=== PATIENT | female | born 1945 | race Caucasian/White ===

== ENCOUNTER 2018-03-13 17:45 | Inpatient (IN) | payer OTHER ==
[~2018-03-13] VITALS: Ht 157.5 cm; Wt 71.7 kg
[2018-03-13 19:01] LABS: ABSOLUTE BASOPHIL COUNT 0.1 /CUMM (0.0-0.2); ABSOLUTE EOSINOPHIL COUNT 0.1 /CUMM (0.0-0.7); ABSOLUTE GRANULOCYTE CT 8.2 /CUMM (1.4-6.5); ABSOLUTE LYMPH COUNT 2.1 /CUMM (1.2-3.4); ABSOLUTE MONOCYTE COUNT 0.7 /CUMM (0.10-0.60); BASOPHIL % 0.5 % (0.0-2.0); EOSINOPHIL % 1.2 % (0-5); GRANULOCYTE % 72.9 % (42.2-75.2); HEMATOCRIT 39.5 % (37-47); MEAN CORPUSCULAR HGB 28.5 PG (27.0-31.0); MEAN CORPUSCULAR HGB CONC 33.3 G/DL (33.0-37.0); MEAN CORPUSCULAR VOLUME 85.7 FL (81.0-99.0); MEAN PLATELET VOLUME 8.1 FL (7.4-10.4); PLATELET COUNT 307 /CUMM (130-400); RBC DISTRIBUTION WIDTH 13.6 % (11.5-14.5); RED BLOOD CELL CT 4.61 /CUMM (4.20-5.40); WHITE BLOOD CELL COUNT 11.2 /CUMM (4.8-10.8)
--- NOTE | 2018-03-13 19:36 | ED CARDIAC/CP/PALPITATIONS ---
History of Present Illness General Chief Complaint: Dyspnea (COPD, CHF, Other) Stated Complaint: SOB Source: patient Exam Limitations: no limitations Vital Signs & Intake/Output Vital Signs & Intake/Output Vital Signs Date Time Temp Pulse Resp B/P B/P Pulse O2 O2 Flow FiO2 Mean Ox Delivery Rate 03/132 97.9 88 18 122/85 96 Room Air 03/13 2019 96 03/13 2006 97.9 108 18 101/73 97 Room Air 03/13 1825 98.0 116 18 121/75 95 Room Air Allergies Coded Allergies: Penicillins (RASH AND HAND PEELING 03/13/18) Triage Note: PT STATSE ABOUT 1 WEEK AGO SHE WAS GETTING SOB AND FELT LIKE SHE HAD TO COUGH. PT STATES THE PAIN FELT LIKE PLURASY. PT STATES HER PCP SENT HER TO CARDIOLOGY AND WAS FOUND TO BE IN RAPID A-FIB. PT WAS THEN PLACED ON ELIQUIS AND METOPROLOL 50 MG. PT STATES SHE WAS TOLD TO COME BACK FOR ECHOCARDIAGRAM. PT STATES TODAY SHE HAS INCREASED SOB AND WHEN SHE COUGHS IT HURTS SO THE ISSUE IS GETTING WORSE. PT WAS TOLD TO COME TO ED FOR CHEST X-RAY Triage Nurses Notes Reviewed? 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 see below for history Cardiovascular: AFIB Surgical History Surgical History: non-contributory Psychosocial History What is your primary language Korean Tobacco Use: Quit >30 days ago ETOH Use: occasional use Illicit Drug Use: denies illicit drug use Family History Hx Contributory? No (Mumtaz Lindsay) Review of Systems Review of Systems Constitutional: Reports: no symptoms. EENTM: Reports: no symptoms. Respiratory: Reports: see HPI. Cardiovascular: Reports: see HPI. GI: Reports: no symptoms. Genitourinary: Reports: no symptoms. Musculoskeletal: Reports: no symptoms. Skin: Reports: no symptoms. Neurological/Psychological: Reports: no symptoms. Hematologic/Endocrine: Reports: no symptoms. Immunologic/Allergic: Reports: no symptoms. All Other Systems: Reviewed and Negative (Mumtaz Lindsay) Physical Exam Physical Exam General Appearance: no apparent distress, alert, comfortable Head: atraumatic Eyes: Bilateral: normal appearance. Ears, Nose, Throat: hearing grossly normal Respiratory: no respiratory distress, decreased breath sounds Cardiovascular: tachycardia, irregularly irregular Gastrointestinal: normal bowel sounds, soft, non-tender Extremities: normal inspection, no edema Neurologic/Psych: no motor/sensory deficits, awake, alert Skin: intact, normal color Lymphatic: no anterior cervical lynsey Core Measures ACS in differential dx? Yes CVA/TIA Diagnosis No Sepsis Present: No Sepsis Focused Exam Completed? No (Mumtaz Lindsay) Progress Differential Diagnosis: AMI, aortic dissection, atrial fibrillation, cholecystitis, CHF/pulm edema, costochondritis, hyperkalemia, hypovolemia, hyperthyroid, hyperventilation, intracranial hemorrhage, musculoskeletal pain, myocarditis, pancreatitis, pericarditis, pneumonia, pneumothorax, PSVT, pulmonary embolism, PUD/GERD, PVCs/PACs, respiratory failure, sepsis, unstable angina, V-fib/V-Tach, WPW syndrome Plan of Care: Orders Procedure Date/time Status Heart Healthy Diet 03/14 B Active Patient Data 03/13 2144 Active BLOOD CULTURE 03/13 2138 Active ED Holding Orders 03/13 2137 Active Admit to inpatient 03/13 2137 Active Vital Signs 03/13 2137 Active Code Status 03/13 2137 Active Intake & Output 03/13 194 Active TROPONIN LEVEL 03/13 1807 Complete COMPREHENSIVE METABOLIC PANEL 03/13 1807 Complete CBC WITHOUT DIFFERENTIAL 03/13 1807 Complete B-TYPE NATRIURETIC PEP (BNP) 03/13 1807 Complete EKG 03/13 174 Active Laboratory Tests 03/13/18 1835: Anion Gap 11, Estimated GFR > 60, BUN/Creatinine Ratio 16.7, Glucose 115 H, Calcium 9.5, Total Bilirubin 0.4, AST 39 H, ALT 51, Alkaline Phosphatase 106, Troponin I < 0.01, Adq-S-Pdg[place]qlkyuh Pept 1670 H, Total Protein 7.2, Albumin 3.8, Globulin 3.4, Albumin/Globulin Ratio 1.1, CBC w Diff NO MAN DIFF REQ, RBC 4.61, MCV 85.7, MCH 28.5, MCHC 33.3, RDW 13.6, MPV 8.1, Gran % 72.9, Lymphocytes % 19.0 L, Monocytes % 6.4, Eosinophils % 1.2, Basophils % 0.5, Absolute Granulocytes 8.2 H, Absolute Lymphocytes 2.1, Absolute Monocytes 0.7 H, Absolute Eosinophils 0.1, Absolute Basophils 0.1 Microbiology 03/13 2239 BLOOD: Blood Culture - RECD 03/13 2138 BLOOD: Blood Culture - CAN Cancelled: Quantity not sufficient for Aerobic blood culture bottle. Upon initial presentation patient is resting comfortably bedside due to recent history of new onset atrial fibrillation CT angiogram was performed. CT scan shows results of concerns of lung cancer with metastasis of the mediastinum and the liver. Patient was given copies of the image results and was informed of this concern Patient also was informed of concerns of CT scan images of infiltrate. IV antibiotics were administered Diagnostic Imaging: Viewed by Me: CT Scan. Radiology Impression: acute abnormality Initial ED EKG: ATRIAL FIBRILLATION 116 Comments: PATIENT: JOSELIN BROWN PRESENT AGE: 73 PATIENT ACCOUNT NO: [id number] : 47 LOCATION: [facility] ORDERING PHYSICIAN: Mumtaz HORVATH SERVICE DATE: 03/13/18 EXAM TYPE: CAT - CTA CHEST-PULMONARY EMBOLISM EXAMINATION: CTA CHEST PE STUDY CLINICAL INFORMATION: SOB, NEW ONSET AFIB COMPARISON: No pertinent prior studies are available for comparison. TECHNIQUE: Prior to contrast administration, noncontrast localization images were obtained. After the administration of 95 ml of Optiray 320 IV contrast, contiguous thin slice helical images were obtained through the thorax. Reformatted MIP images in the coronal and sagittal planes were obtained at the acquisition workstation. DLP: 372 mGy-cm. FINDINGS: The bolus timing on this study was acceptable for visualization of the pulmonary arterial tree. There are no intraluminal pulmonary arterial filling defects present to suggest pulmonary embolism. There is a large mass lesion involving the right superhilar region and mediastinum. This doesn't case the right upper lobe bronchi and upper lobe artery which is severely truncated by this very large mass lesion. The mass extends into the mediastinum and is contiguous with likely right paratracheal, precarinal, and right hilar adenopathy overall the confluent lesion measures 7.3 x 4.1 cm in size in the axial images. Extends for a superior to inferior length of approximately 9.3 cm in size. Unfortunately, there is also additional subcarinal adenopathy measuring up to 1.6 cm in short axis diameter, prominent contralateral AP window lymph nodes measuring up to 0.7 cm in short axis diameter and additional right upper mediastinal/supraclavicular lymph nodes measuring up to 2.7 cm and maximal short axis diameter. There are additional patchy regions of airspace disease in the right upper lobe possibly reflecting a component of postobstructive change. There is mild emphysematous changes bilaterally. There is no evidence of pleural effusion or pneumothorax. The heart is normal in size. No evidence of ventricular septal bowing or right heart strain. The mediastinum and great vessels are normal. There is no pericardial effusion or pericardial thickening. Limited evaluation of the upper abdominal viscera demonstrates innumerable subtle low-attenuation lesions throughout the liver concerning for diffuse hepatic metastases as well. These are not well delineated but the largest lesion in the lateral right lobe the liver measures up to 2.5 cm in short axis diameter. I do not appreciate any acute bony lesion IMPRESSION: Large right suprahilar mass lesion extending into the adjacent mediastinum with likely confluent adenopathy in the right hilar, precarinal, and paratracheal regions. There is additional adenopathy elsewhere in the mediastinum and right supraclavicular region concerning for metastatic disease. Additionally in the visualized upper abdomen there are innumerable low-attenuation lesions seen throughout the liver concerning for diffuse hepatic metastases. More patchy airspace disease is seen in the lateral aspect of the right upper lobe possibly due to infectious or inflammatory postobstructive changes. Primary small peripheral lung lesion in this location would be possible but less likely based on the size and distribution of the adenopathy/metastases VTE: Negative DICTATED BY: Andrew Ibarra MD DATE/TIME DICTATED:03/13/182050 CONSTRUCTION QUALITY CONTROL MANAGER:NAHUM DATE/TIME TRANSCRIBED:03/13/182050 CONFIDENTIAL, DO NOT COPY WITHOUT APPROPRIATE AUTHORIZATION. <Electronically signed in Other Vendor System> SIGNED BY: Andrew Ibarra MD 05/23 (Mumtaz Lindsay) Departure Departure Disposition: STILL A PATIENT Condition: Stable Clinical Impression Primary Impression: Pneumonia Secondary Impressions: Lung cancer, Metastasis Referrals: Neo RAMIRES,Nicki Garcia (PCP/Family) Departure Forms: Customer Survey General Discharge Information Admission Note Spoke With: Bolivar Cook MD Documentation of Exam: Documentation of any treatments & extenuating circumstances including Concerns Regarding Discharge (functional status, medication knowledge or non-compliance, living conditions, etc.) that warrant an admission rather than observation: [ Patient requires pulmonary consultation IV antibiotics nebulizer treatments oncology consultation and repeat labs blood cultures pending] (Mumtaz Lindsay) PA/SAP PPM CONSULTANT Co-Sign Statement Statement: ED Attending supervision documentation- [X] I saw and evaluated the patient. I have also reviewed all the pertinent lab results and diagnostic results. I agree with the findings and the plan of care as documented in the PA's/SAP PPM CONSULTANT's documentation. [X] I have reviewed the ED Record and agree with the PA's/SAP PPM CONSULTANT's documentation. [] Additions or exceptions (if any) to the PAs/SAP PPM CONSULTANT's note and plan are summarized below: [Patient has new-onset A. fib and worsening shortness of breath. She was diagnosed with metastatic disease here in the emergency department. Patient will be admitted for pulmonary oncology consultation. Patient will need cardiology consultation, telemetry monitoring, she is being admitted for her dyspnea.] (Harshil Pascual MD) Critical Care Note Critical Care Note Critical Care Time: 30-74 min (Mumtaz Lindsay) [] Additions or exceptions (if any) to the PAs/SAP PPM CONSULTANT's note and plan are summarized below: [Patient has new-onset A. fib and worsening shortness of breath. She was diagnosed with metastatic disease here in the emergency department. Patient will be admitted for pulmonary oncology consultation. Patient will need cardiology consultation, telemetry monitoring, she is being admitted for her dyspnea.] (Harshil Pascual MD) Critical Care Note Critical Care Note Critical Care Time: 30-74 min (Mumtaz Lindsay)
--- NOTE | 2018-03-13 21:02 | CT SCAN REPORT ---
EXAMINATION: CTA CHEST PE STUDY CLINICAL INFORMATION: SOB, NEW ONSET AFIB COMPARISON: No pertinent prior studies are available for comparison. TECHNIQUE: Prior to contrast administration, noncontrast localization images were obtained. After the administration of 95 ml of Optiray 320 IV contrast, contiguous thin slice helical images were obtained through the thorax. Reformatted MIP images in the coronal and sagittal planes were obtained at the acquisition workstation. DLP: 372 mGy-cm. FINDINGS: The bolus timing on this study was acceptable for visualization of the pulmonary arterial tree. There are no intraluminal pulmonary arterial filling defects present to suggest pulmonary embolism. There is a large mass lesion involving the right superhilar region and mediastinum. This doesn't case the right upper lobe bronchi and upper lobe artery which is severely truncated by this very large mass lesion. The mass extends into the mediastinum and is contiguous with likely right paratracheal, precarinal, and right hilar adenopathy overall the confluent lesion measures 7.3 x 4.1 cm in size in the axial images. Extends for a superior to inferior length of approximately 9.3 cm in size. Unfortunately, there is also additional subcarinal adenopathy measuring up to 1.6 cm in short axis diameter, prominent contralateral AP window lymph nodes measuring up to 0.7 cm in short axis diameter and additional right upper mediastinal/supraclavicular lymph nodes measuring up to 2.7 cm and maximal short axis diameter. There are additional patchy regions of airspace disease in the right upper lobe possibly reflecting a component of postobstructive change. There is mild emphysematous changes bilaterally. There is no evidence of pleural effusion or pneumothorax. The heart is normal in size. No evidence of ventricular septal bowing or right heart strain. The mediastinum and great vessels are normal. There is no pericardial effusion or pericardial thickening. Limited evaluation of the upper abdominal viscera demonstrates innumerable subtle low-attenuation lesions throughout the liver concerning for diffuse hepatic metastases as well. These are not well delineated but the largest lesion in the lateral right lobe the liver measures up to 2.5 cm in short axis diameter. I do not appreciate any acute bony lesion IMPRESSION: Large right suprahilar mass lesion extending into the adjacent mediastinum with likely confluent adenopathy in the right hilar, precarinal, and paratracheal regions. There is additional adenopathy elsewhere in the mediastinum and right supraclavicular region concerning for metastatic disease. Additionally in the visualized upper abdomen there are innumerable low-attenuation lesions seen throughout the liver concerning for diffuse hepatic metastases. More patchy airspace disease is seen in the lateral aspect of the right upper lobe possibly due to infectious or inflammatory postobstructive changes. Primary small peripheral lung lesion in this location would be possible but less likely based on the size and distribution of the adenopathy/metastases VTE: Negative
--- NOTE | 2018-03-13 22:54 | History & Physical ---
ChanelJonathanli 03/13/18 2253: General Information and HPI MD Statement: I have seen and personally examined JOSELIN BROWN and documented this H&P. The patient is a 73 year old F who presented with a patient stated chief complaint of []. Source of Information: patient, family Exam Limitations: no limitations History of Present Illness: Ms Brown is a 73 year old woman w/ a PMHx of paroxysmal atrial fibrillation came to the hospital with a chief concern of exertional dyspnea 1 week. She was known to be in her usual state of health until a few weeks ago, when she noticed that she had pain in her right side of the chest. Approximately one week ago, she had exertional shortness of breath, and nasal congestion and was evaluated by her primary care physician and subsequently by her siebel administrator. She was diagnosed with atrial fibrillation and was started on apixaban and metoprolol. She did not have any chest pain, palpitations, lightheadedness, loss of consciousness, pedal edema. Approximately 24 hours ago, she noticed that she had worsening dyspnea upon ambulation, associated with nonproductive cough and right-sided chest pain at the time of paroxysms of cough. She was seen at walk-in clinic and was recommended to be evaluated in the ER. No fever, but had occasional chills. No weight loss or weight gain, no changes in appetite. No melena, bleeding per rectum. No jaundice, nausea or vomiting. No pedal edema, dysuria. No abdominal distention. No previous hospital admissions, but reported having increased vaginal discharge in the last few months which was evaluated by her primary care physician and thought to be benign. Past smoker, [id number] smoking history, quit 20 years ago. Family history of lung cancer in mother. 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 Allergies/Medications Allergies: Coded Allergies: Penicillins (RASH AND HAND PEELING 03/13/18) Home Med list Apixaban (Eliquis) 5 MG TABLET 1 TAB PO BID atrial fibrillaton (Reported) Metoprolol Succinate 100 MG TAB.ER.24H 1 TAB PO DAILY heart health (Reported) Past History Travel History Traveled to [place] past 21 day No Medical History Cardiovascular: AFIB Surgical History Surgical History: non-contributory Past Family/Social History Family History Relations & Conditions if any MOTHER (LUNG CA). Psychosocial History Where do you live? Home Services at Home: None Primary Language: Maldivian Smoking Status: Former Smoker ETOH Use: occasional use Illicit Drug Use: denies illicit drug use Living Will? no Functional Ability ADLs Independent: dressing, eating, toileting, bathing. Ambulation: independent IADLs Independent: shopping, housework, finances, food prep, telephone, medication admin. Unknown: transportation. Employment History Employment Retired Profession/Employer OFFICE WORK Review of Systems Review of Systems Constitutional: Reports: see HPI, chills. Denies: fever, weakness, unexplained weight loss. EENTM: Denies: double vision, icterus. Cardiovascular: Reports: chest pain. Denies: palpitations. Respiratory: Denies: hemoptysis, orthopnea. GI: Denies: abdominal pain, diarrhea, melena, nausea, bloody stool, changes in stool , vomiting. Genitourinary: Denies: dysuria. Musculoskeletal: Denies: back pain. Skin: Denies: change in skin color. Neurological/Psychological: Denies: pre-existing deficit. Hematologic/Endocrine: Denies: bruising, bleeding. Exam & Diagnostic Data Last 24 Hrs of Vital Signs/I&O Vital Signs Date Time Temp Pulse Resp B/P B/P Pulse O2 O2 Flow FiO2 Mean Ox Delivery Rate 03/13 2212 97.9 88 18 122/85 96 Room Air 03/13 2019 96 03/13 2006 97.9 108 18 101/73 97 Room Air 03/13 1825 98.0 116 18 121/75 95 Room Air Physical Exam General Appearance Alert, Oriented X3, Cooperative, No Acute Distress Skin No Rashes, No Breakdown, No Significant Lesion Skin Temp/Moisture Exam: Warm/Dry Sepsis Skin Exam (color): Normal for Ethnicity HEENT Atraumatic, PERRLA, EOMI, Mucous Membr. moist/pink Neck Supple, No JVD, No thryomegaly, +2 Carotid Pulse wo Bruit, No LAD Lymphatic Axillary nl, Cervical nl, INGUINAL Nl Cardiovascular Normal S1, Normal S2, No Murmurs, IRREGULAR Lungs DECREASED AIR ENTRY B/L WHEEZES R > L Abdomen Normal Bowel Sounds, Soft, No Tenderness, No Hepatospenomegaly Neurological Normal Speech, Strength at 5/5 X4 Ext, Normal Tone, Sensation Intact, Cranial Nerves 3-12 NL, Reflexes 2+ Extremities No Clubbing, No Cyanosis, No Edema, Normal Pulses, No Tenderness/ Swelling Vascular Normal Pulses, Pulses Symmetrical Sepsis Peripheral Pulse Location: Dorsalis Pedis Sepsis Peripheral Pulse Exam: Normal Sepsis Cap Refill Exam: <2 Sec Last 24 Hrs of Labs/Dano: Laboratory Tests 03/13/18 1835: Anion Gap 11, Estimated GFR > 60, BUN/Creatinine Ratio 16.7, Glucose 115 H, Calcium 9.5, Total Bilirubin 0.4, AST 39 H, ALT 51, Alkaline Phosphatase 106, Troponin I < 0.01, Xkh-Z-Csrurjxpony Pept 1670 H, Total Protein 7.2, Albumin 3.8, Globulin 3.4, Albumin/Globulin Ratio 1.1, CBC w Diff NO MAN DIFF REQ, RBC 4.61, MCV 85.7, MCH 28.5, MCHC 33.3, RDW 13.6, MPV 8.1, Gran % 72.9, Lymphocytes % 19.0 L, Monocytes % 6.4, Eosinophils % 1.2, Basophils % 0.5, Absolute Granulocytes 8.2 H, Absolute Lymphocytes 2.1, Absolute Monocytes 0.7 H, Absolute Eosinophils 0.1, Absolute Basophils 0.1 Microbiology 03/13 2349 URINE ROUT: Legionella Antigen - ORD 03/13 2349 URINE ROUT: Streptococcus pneumoniae Antigen (M - ORD 03/13 2348 LOWER RESP: Respiratory Culture - ORD 03/13 2348 LOWER RESP: Gram Stain - ORD 03/13 2239 BLOOD: Blood Culture - RECD 03/13 2138 BLOOD: Blood Culture - CAN Cancelled: Quantity not sufficient for Aerobic blood culture bottle. Diagnostic Data EKG Results NOT DONE Assessment/Plan Assessment: Ms Brown is a 73 year old woman w/ a PMHx of paroxysmal atrial fibrillation came to the hospital with a chief concern of exertional dyspnea 1 week, likely secondary to worsening malignancy and post obstructive pneumonia. At the time of admission-vitals temperature 98.0, pulse rate 116, respiration 18 , blood pressure 121/75, 95% on room air. Pertinent lab findings: WBC 11.2, hemoglobin 13.1, MCV 85.7, platelet count 307. Sodium 141, potassium 4.2. Bicarbonate 28, anion gap 11, BUN 15, creatinine 0.9. ProBNP 1670. AST 39, ALT 51, alkaline phosphatase 106. Albumin 3.8. Chest CTA revealed: Large right suprahilar mass lesion extending into the adjacent mediastinum with likely confluent adenopathy in the right hilar, precarinal, andparatracheal regions. There is additional adenopathy elsewhere in the mediastinum and right supraclavicular region concerning for metastatic disease. Additionally in the visualized upper abdomen there are innumerable low-attenuation lesions seen throughout the liver concerning for diffusehepatic metastases. More patchy airspace disease is seen in the lateralaspect of the right upper lobe possibly due to infectious or inflammatorypostobstructive changes. Primary small peripheral lung lesion in this location would be possible but less likely based on the size and distributionof the adenopathy/metastases Problem list: #1 Lung mass w/ extrathoracic dissimination #2 pneumonia #3 paroxysmal atrial fibrillation Etiology in her case is likely maligancy, likely adenocarcinoma which is increasing in prevalence and the treatment can be targeted. That said, given her rapidity of symptoms that got worsened in the last few weeks, and history of smoking+Fam Hx makes me think, that small cell cancer should be kept in mind and diagnosis expediated by biopsy and PET. She presented w/ dissimination of mets to extrathoracic organs at the time of diagnosis, and small cell should be kept in differentials. In regards to her bronchospasm, and possible pneumonia, further management should be subjected to clinical course in the next 12-24 hrs, and abx could be dc'ed after reviewing cultures. Plan: # Obtain venous access, and fluid resuscitation as needed. #Supplemental oxygen, prn #Inhaled bronchodilators as needed #Follow CBCs with differential, serum chemistry #Blood cultures drawn in ther ER. Check LRC. #Check urine antigen test for strep pneumo and legionella #Trend lactate, if she is febrile or has any s/s sepsis #Start IV antibiotics-preferably beta lactam+ macrolide for now. If she is asymptomatic in the next 24 hrs, and culutes are negative dc abx. #Hold eliquis, and restart if no biopsy is planned in the next 12 hrs.continue toprol xl #For the Mgt of lung ca- she should follow up with Oncologist winter, and get a PET scan to make sure that this is not small cell lung ca given the rapid onset of symptoms. Checklist: 1. DVT Ppx- Eliquis 2. GI ppx-Protonix 3. Full code 4. Pain pathway ordered. 5. Med rec completed. As Ranked By This Provider Problem List: 1. Metastasis 2. Lung cancer Core Measures/Misc (05/22) Acute Coronary Syndrome ACS Diagnosis: No Congestive Heart Failure Congestive Heart Failure Diagnosis No Cerebrovascular Accident CVA/TIA Diagnosis: No VTE (View Protocol) VTE Risk Factors Acute Medical Illness No Mechanical VTE Prophylaxis d/t N/A MechProphylax Ordered No VTE Pharm Prophylaxis d/t NA PharmProphylax ordered Sepsis (View protocol) Sepsis Present: No If YES complete Sepsis Event Note If YES complete Sepsis Event Note Bolivar Cook MD 03/14/18 0143: Core Measures/Misc (05/22) Sepsis (View protocol) If YES complete Sepsis Event Note If YES complete Sepsis Event Note Attending MD Review Statement Attending Statement Attending MD Statement: examined this patient, discuss w/resident/PA/[employer] HAT LINUX ENGINEER, agreed w/resident/PA/[employer] ENGINEER, reviewed EMR data (avail) Attending Assessment/Plan: 73F no PMH prior to last week when she was diagnosed with new onset atrial fibrillation and placed on Metoprolol and Eliquis, presenting with progressive shortness of breath and dyspnea on exertion for the past week, symptoms did not improve following a-fib treatment, also with fatigue. CTA was done, negative for PE, but showed new large right suprahilar mass with extension into mediastinum and liver metastases. Also shows patchy infiltrates in RUL, WBC 11, afebrile. 1. RUL pneumonia 2. Right lung mass 3. Liver metastases 4. Paroxsymal atrial fibrillation Plan - Admit to general medicine - Ceftriaxone and Azithromycin - Sputum culture - Pulmonary and oncology consults - Continue Metoprolol, hold Eliquis as biopsy may be required - DVT PPx
[2018-03-13] MEDS ORDERED: ELIQUIS5 M1 PO (23:43)
[2018-03-13] MEDS ORDERED: METOPROLOL SUC100 M2 PO (23:43)
--- NOTE | 2018-03-14 07:05 | Cons- Oncology ---
General Information and HPI Consulting Request Date of Consult: 03/14/18 Requested By: Bolivar Cook MD History of Present Illness: 73-year-old woman the recent diagnosis of atrial fibrillation placed on Eliquis now found to have a large lung mass. Patient is complaining of chest discomfort for quite some time. She denied hemoptysis productive sputumq or a pleuritic component to her pain. She recently has seen cardiology and was placed on anticoagulation and a beta marcus. Echocardiogram was scheduled as an outpatient. Allergies/Medications Allergies: Coded Allergies: Penicillins (RASH AND HAND PEELING 03/13/18) Home Med List: Apixaban (Eliquis) 5 MG TABLET 1 TAB PO BID atrial fibrillaton (Reported) Metoprolol Succinate 100 MG TAB.ER.24H 1 TAB PO DAILY heart health (Reported) Current Medications: Current Medications Sig/Cate Start time Last Medication Dose Route Stop Time Status Admin Acetaminophen 650 MG Q8P PRN 03/13 2345 AC PO Albuterol Sulfate 3 ML Q4P PRN 03/13 2345 AC INH Albuterol Sulfate 3 ML ONCE ONE 03/13 2000 DC 03/13 INH 03/13 Apixaban 5 MG BID 03/14 0035 CAN PO Apixaban 5 MG BID 03/13 2345 DC 03/14 PO 0103 Azithromycin 500 MG 2300 03/14 2300 AC Sodium Chloride 250 ML IV Azithromycin 500 MG ONCE ONE 03/13 2145 DC 03/13 Sodium Chloride 250 ML IV 03/13 2244 2300 Ceftriaxone Sodium 1,000 MG 2300 03/14 2300 AC IV Ceftriaxone Sodium 0 .STK-MED ONE 03/13 2249 DC .ROUTE Ceftriaxone Sodium 1,000 MG ONCE ONE 03/13 214 DC 03/13 IV 03/13 2146 2300 Ipratropium [place] 2.5 ML ONCE ONE 03/13 2000 DC 03/13 INH 03/13 Metoprolol Succinate 100 MG DAILY 03/14 0900 AC PO Oxycodone HCl 5 MG Q8P PRN 03/14 0015 AC PO Tramadol HCl 50 MG Q8P PRN 03/14 0015 AC PO Review of Systems Review of Systems: Patient complains of headaches on the right side which is attributed to sinus congestion. She denied dizziness or change in vision. Patient denied nausea vomiting diarrhea change in bowel habits. She denied dysuria hematuria. Patient denied bone aches or focal neurologic deficit Past History Travel History Traveled to [place] past 21 day No Medical History Cardiovascular: AFIB Surgical History Surgical History: non-contributory Family History Relations & Conditions If Any: MOTHER (LUNG CA). Psychosocial History Where Do You Live? Home Services at Home: None Primary Language: Lithuanian Smoking Status: Former Smoker ETOH Use: occasional use Illicit Drug Use: denies illicit drug use Living Will? no Functional Ability ADLs Independent: dressing, eating, toileting, bathing. Ambulation: independent IADLs Independent: shopping, housework, finances, food prep, telephone, medication admin. Unknown: transportation. Employment History Employment: Retired Profession/Employer: OFFICE WORK Exam & Diagnostic Data Vital Signs and I&O Vital Signs Date Time Temp Pulse Resp B/P B/P Pulse O2 O2 Flow FiO2 Mean Ox Delivery Rate 03/13 2212 97.9 88 18 122/85 96 Room Air 03/13 2019 96 03/13 2006 97.9 108 18 101/73 97 Room Air 03/13 1825 98.0 116 18 121/75 95 Room Air Intake & Output 03/14 0800 03/14 0000 03/13 1600 Intake Total Output Total Balance Patient 158 lb Weight Weight Reported by Patient Measurement Method Gen.: in NAD ENT: Sclera anicteric Chest: Normal respiratory effort, decreased breath sounds Cor: Irregular Abd: Bowel sounds present, no tenderness, no rebound, no definite masses Extremities: Without clubbing, cyanosis, or asymmetric edema Neurology: Alert and oriented 3, no gross deficit Skin: No rashes Breasts: No masses or nipple discharge Lymph nodes-nonpalpable Last 48 Hours of Lab Results: Laboratory Tests 03/13 1835 Chemistry Sodium (137 - 145 mmol/L) 141 Potassium (3.5 - 5.1 mmol/L) 4.2 Chloride (98 - 107 mmol/L) 102 Carbon Dioxide (22 - 30 mmol/L) 28 Anion Gap (5 - 16) 11 BUN (7 - 17 mg/dL) 15 Creatinine (0.5 - 1.0 mg/dL) 0.9 Estimated GFR (>60 ml/min) > 60 BUN/Creatinine Ratio (7 - 25 %) 16.7 Glucose (65 - 99 mg/dL) 115 H Calcium (8.4 - 10.2 mg/dL) 9.5 Total Bilirubin (0.2 - 1.3 mg/dL) 0.4 AST (14 - 36 U/L) 39 H ALT (9 - 52 U/L) 51 Alkaline Phosphatase (<127 U/L) 106 Troponin I (< 0.11 ng/ml) < 0.01 [id number] Pept (<125 pg/mL) 1670 H Total Protein (6.3 - 8.2 g/dL) 7.2 Albumin (3.5 - 5.0 g/dL) 3.8 Globulin (1.9 - 4.2 gm/dL) 3.4 Albumin/Globulin Ratio (1.1 - 2.2 %) 1.1 Hematology CBC w Diff NO MAN DIFF REQ WBC (4.8 - 10.8 /CUMM) 11.2 H RBC (4.20 - 5.40 /CUMM) 4.61 Hgb (12.0 - 16.0 G/DL) 13.1 Hct (37 - 47 %) 39.5 MCV (81.0 - 99.0 FL) 85.7 MCH (27.0 - 31.0 PG) 28.5 MCHC (33.0 - 37.0 G/DL) 33.3 RDW (11.5 - 14.5 %) 13.6 Plt Count (130 - 400 /CUMM) 307 MPV (7.4 - 10.4 FL) 8.1 Gran % (42.2 - 75.2 %) 72.9 Lymphocytes % (20.5 - 51.1 %) 19.0 L Monocytes % (1.7 - 9.3 %) 6.4 Eosinophils % (0 - 5 %) 1.2 Basophils % (0.0 - 2.0 %) 0.5 Absolute Granulocytes (1.4 - 6.5 /CUMM) 8.2 H Absolute Lymphocytes (1.2 - 3.4 /CUMM) 2.1 Absolute Monocytes (0.10 - 0.60 /CUMM) 0.7 H Absolute Eosinophils (0.0 - 0.7 /CUMM) 0.1 Absolute Basophils (0.0 - 0.2 /CUMM) 0.1 Imaging/Other Studies: [id number] hilar mass involvement in the mediastinum, abnormal lymphadenopathy, masses in the liver consistent with metastatic disease,? Question abnormal supraclavicular lymph node Assessment/Plan Assessment: 1. CAT scan findings are most suggestive of metastatic lung cancer- Issues- a. Need for tissue confirmation-pulmonary service to see patient, there is no palpable lymphadenopathy on physical exam, if accessible , a liver biopsy would not only confirm diagnosis but define stage of disease b. Extent of disease-CAT scan of the head with contrast, bone scan or PET scan; Given the recent diagnosis of atrial fibrillation, echocardiogram c. Treatment-await biopsy 2. New-onset atrial fibrillation-CAT scan report does not suggest pericardial involvement but echocardiogram is indicated; timing of biopsy needs to accommodate Eliquis use I have discussed the above with the patient Recommendations: .. Consult Acknowledgment - Thank you for your consult request.
--- NOTE | 2018-03-14 07:56 | PN- Housestaff ---
Laila RAMIRES,Sylvia 03/14/18 0756: Subjective Follow-up For: post obstructive pneumonia Subjective: Patient seen and examined. She continues to have right-sided chest pain when she coughs. She denies any shortness of breath but is lying comfortably in bed, not exerting herself. Her vitals are stable. She is very eager to go home and it was explained at length the plan and that it would be best if she stayed at least for 1 more day. Patient has no other complaints and says that she feels good. Review of Systems Constitutional: Reports: no symptoms. Cardiovascular: Reports: chest pain. Respiratory: Reports: cough. Gastrointestinal: Reports: no symptoms. Genitourinary: Reports: no symptoms. Musculoskeletal: Reports: no symptoms. Skin: Reports: no symptoms. Neurological/Psychological: Reports: no symptoms. Objective Last 24 Hrs of Vital Signs/I&O Vital Signs Date Time Temp Pulse Resp B/P B/P Pulse O2 O2 Flow FiO2 Mean Ox Delivery Rate 03/14 1442 97.9 103 18 100/60 94 Room Air 03/14 1339 98.2 91 17 120/70 95 Room Air 03/14 0942 90 122/70 03/14 0926 98.0 90 18 122/70 98 Room Air 03/14 0800 Room Air 03/14 0800 Room Air 03/13 2212 97.9 88 18 122/85 96 Room Air 03/13 2019 96 03/13 2006 97.9 108 18 101/73 97 Room Air 03/13 1825 98.0 116 18 121/75 95 Room Air Intake & Output 03/14 1600 03/14 0800 03/14 0000 Intake Total 120 Output Total Balance 120 Intake, Oral 120 Number 0 Bowel Movements Patient 158 lb 158 lb Weight Weight Reported by Patient Reported by Patient Measurement Method Physical Exam General Appearance: Alert, Oriented X3, Cooperative, No Acute Distress Skin Temp/Moisture Exam: Warm/Dry HEENT: Atraumatic, PERRLA, EOMI, Mucous Membr. moist/pink Neck: Supple, No JVD Cardiovascular: Regular Rate, Normal S1, Normal S2, No Murmurs Lungs: Clear to Auscultation, Normal Air Movement Neurological: Normal Gait, Normal Speech, Strength at 5/5 X4 Ext, Normal Tone, Sensation Intact, Cranial Nerves 3-12 NL Extremities: No Clubbing, No Cyanosis, No Edema, Normal Pulses, No Tenderness/ Swelling Current Medications: Current Medications Sig/Cate Start time Last Medication Dose Route Stop Time Status Admin Acetaminophen 650 MG Q8P PRN 03/13 234 AC PO Albuterol Sulfate 3 ML Q4P PRN 03/13 2345 AC INH Albuterol Sulfate 3 ML ONCE ONE 03/13 2000 DC 03/13 INH 03/13 Apixaban 5 MG BID 03/14 0035 CAN PO Apixaban 5 MG BID 03/13 2345 DC 03/14 PO 0103 Azithromycin 500 MG 2300 03/14 2300 AC Sodium Chloride 250 ML IV Azithromycin 500 MG ONCE ONE 03/13 2145 DC 03/13 Sodium Chloride 250 ML IV 03/13 224 2300 Ceftriaxone Sodium 1,000 MG 2300 03/14 230 AC IV Ceftriaxone Sodium 0 .STK-MED ONE 03/13 2249 DC .ROUTE Ceftriaxone Sodium 1,000 MG ONCE ONE 03/13 2145 DC 03/13 IV 03/13 214 2300 Ipratropium Dalhart 2.5 ML ONCE ONE 03/13 2000 DC 03/13 INH 03/13 Metoprolol Succinate 100 MG DAILY 03/14 900 AC 03/14 PO 0942 Oxycodone HCl 5 MG Q8P PRN 03/14 0015 AC PO Tramadol HCl 50 MG Q8P PRN 03/14 0015 AC PO Last 24 Hrs of Lab/Dano Results Last 24 Hrs of Labs/Mics: Laboratory Tests 03/14/18 0648: Anion Gap 14, Estimated GFR > 60, BUN/Creatinine Ratio 17.5, CBC w Diff NO MAN DIFF REQ, RBC 4.69, MCV 85.1, MCH 28.5, MCHC 33.5, RDW 13.8, MPV 8.2, Gran % 74.8, Lymphocytes % 18.6 L, Monocytes % 4.7, Eosinophils % 1.0, Basophils % 0.9 , Absolute Granulocytes 7.8 H, Absolute Lymphocytes 2.0, Absolute Monocytes 0.5 , Absolute Eosinophils 0.1, Absolute Basophils 0.1 03/13/18 1835: Anion Gap 11, Estimated GFR > 60, BUN/Creatinine Ratio 16.7, Glucose 115 H, Calcium 9.5, Total Bilirubin 0.4, AST 39 H, ALT 51, Alkaline Phosphatase 106, Troponin I < 0.01, Sxs-D-Qubyyqspmao Pept 1670 H, Total Protein 7.2, Albumin 3.8, Globulin 3.4, Albumin/Globulin Ratio 1.1, CBC w Diff NO MAN DIFF REQ, RBC 4.61, MCV 85.7, MCH 28.5, MCHC 33.3, RDW 13.6, MPV 8.1, Gran % 72.9, Lymphocytes % 19.0 L, Monocytes % 6.4, Eosinophils % 1.2, Basophils % 0.5, Absolute Granulocytes 8.2 H, Absolute Lymphocytes 2.1, Absolute Monocytes 0.7 H, Absolute Eosinophils 0.1, Absolute Basophils 0.1 Microbiology 03/14 649 URINE ROUT: Legionella Antigen - COMP 03/14 649 URINE ROUT: Streptococcus pneumoniae Antigen (M - COMP 03/14 645 BLOOD: Blood Culture - RECD 03/14 630 BLOOD: Blood Culture - RECD 03/13 2349 URINE ROUT: Streptococcus pneumoniae Antigen (M - CAN Cancelled: CHANGED SOURCE 03/13 2348 LOWER RESP: Respiratory Culture - CAN Cancelled: NO SAMPLE COLLECTED 03/13 2348 LOWER RESP: Gram Stain - CAN Cancelled: NO SAMPLE COLLECTED 03/13 2239 BLOOD: Blood Culture - RES 03/13 2138 BLOOD: Blood Culture - CAN Cancelled: Quantity not sufficient for Aerobic blood culture bottle. Assessment/Plan Assessment: Ms Hall is a 73 year old woman w/ a PMHx of paroxysmal atrial fibrillation came to the hospital with a chief concern of exertional dyspnea 1 week, likely secondary to worsening malignancy and post obstructive pneumonia. At the time of admission-vitals temperature 98.0, pulse rate 116, respiration 18 , blood pressure 121/75, 95% on room air. Pertinent lab findings: WBC 11.2, hemoglobin 13.1, MCV 85.7, platelet count 307. Sodium 141, potassium 4.2. Bicarbonate 28, anion gap 11, BUN 15, creatinine 0.9. ProBNP 1670. AST 39, ALT 51, alkaline phosphatase 106. Albumin 3.8. Chest CTA revealed: Large right suprahilar mass lesion extending into the adjacent mediastinum with likely confluent adenopathy in the right hilar, precarinal, andparatracheal regions. There is additional adenopathy elsewhere in the mediastinum and right supraclavicular region concerning for metastatic disease. Additionally in the visualized upper abdomen there are innumerable low-attenuation lesions seen throughout the liver concerning for diffusehepatic metastases. More patchy airspace disease is seen in the lateralaspect of the right upper lobe possibly due to infectious or inflammatorypostobstructive changes. Primary small peripheral lung lesion in this location would be possible but less likely based on the size and distributionof the adenopathy/metastases Problem list: #1 Lung mass w/ extrathoracic dissemination #2 Likely post-obstruction pneumonia - sepsis with evidence of SIRS (TACHYCARDIA AND WHITE COUNT) with a source #3 Paroxysmal atrial fibrillation Etiology in her case is likely maligancy, likely adenocarcinoma. Given her rapidity of symptoms that worsened in the last few weeks, and history of smoking +Fam Hx multiple cancers, small cell cancer should be kept in mind and diagnosis expediated by biopsy and PET. However, patient was given her eliquis dose early Tuesday morning so biopsy will unfortunately have to wait. Plan: -Patient admitted to [facility] medical floors. -Continue patient on ceftriaxone 1 g daily and azithromycin for now with switch to by mouth antibiotic (discontinuation of antibiotics if she remains afebrile with low white count tomorrow) for likely discharge -We have consulted with oncology who stressed the importance of tissue confirmation. There are no palpable lymph nodes so we will instead go for liver biopsy which we have scheduled tentatively for Tuesday, outpatient with interventional radiology. -Patient will also get outpatient bone scan/PET for metastases -While inpatient, however, she will have CT head with and without IV contrast as she was recently on anticoagulants and could have hemorrhagic transformation of brain lesions and this would change the management of her A. fib which is currently Eliquis. As she received Eliquis on Tuesday night, the earliest that we can do liver biopsy is on Tuesday. Additionally as the patient received contrast last night for her chest CAT scan, the earliest we can do the CT head is 8 PM on 03/14 (24 hours later). -We have also ordered echocardiogram patient has new onset atrial fibrillation. CAT scan does not suggest pericardial involvement. -We have cardiology seeing the patient for guidance on her anticoagulation. We will hold Eliquis and since her past medical history is negative for vascular disease otherwise, there is no need for heparin bridging. However her overall [id number] score is elevated enough so that we will recommend resumption anticoagulation after biopsy. -Also, according to cardiology, and given her capacity to perform greater than 6 metastases of physical activity, there is no further need for preoperative cardiac testing prior to the liver biopsy. -Supplemental oxygen, prn -Inhaled bronchodilators as needed -Follow CBCs with differential, serum chemistry, also do type and screen and PT/ INR, PTT in preparation for Tuesday's biopsy -Blood cultures drawn in ther ER. No lower respiratory culture was able to be obtained, negative strep and legionella antigens. -Trend lactate, if she is febrile 1. DVT Ppx- ALPS 2. GI ppx-Protonix 3. Full code 4. Pain pathway ordered. Problem List: 1. Pneumonia 2. Lung cancer 3. Metastasis Pain Ratin Pain Location: right chest Pain Goal: Pain 4 or less Pain Plan: as needed Tomorrow's Labs & Rationales: cbc bep inr ptt Yumi Haskins MD 03/14/18 1112: Attending MD Review Statement Attending Statement Attending MD Statement: examined this patient, discuss w/resident/PA/LEASING REPRESENTATIVE, agreed w/resident/PA/LEASING REPRESENTATIVE, reviewed EMR data (avail), discussed with nursing, discussed with case mgmt, reviewed images Attending Assessment/Plan: 73-year-old female recently diagnosed atrial fibrillation on metoprolol and Eliquis here with shortness of breath and pleuritic chest pain. CTA showed a large right suprahilar mass with adjacent lymphadenopathy, postobstructive pneumonia and liver lesions suspicious of metastases. The resident and I spoke to the patient and she is aware of our presumptive diagnosis. She got her last dose of Eliquis late last night and we spoke to IR and the earliest they will do the liver biopsy will be on Tuesday. Patient has a dog at home and is very keen on being discharged. She says she will pursue all of this as an outpatient. We explained the postobstructive pneumonia and will continue the IV antibiotics today. We'll get a CT of her head with IV contrast as if she has very large metastatic lesions, that may change our management given the anticoagulation for A. fib. Will defer the bone scan and PET scan as an outpatient. So the plan right now will be to continue IV antibiotics today, get a CT head with IV contrast to make sure she doesn't have large brain metastases. If stable then anticipate discharge in a.m. on oral antibiotics with the outpatient ultrasound- guided liver biopsy scheduled for Tuesday and further outpatient follow-up with Dr. Ward at the cancer center. I did speak to Dr. Ward about the above plan and he is in agreement as well.
[2018-03-14 08:06] LABS: ABSOLUTE BASOPHIL COUNT 0.1 /CUMM (0.0-0.2); ABSOLUTE EOSINOPHIL COUNT 0.1 /CUMM (0.0-0.7); ABSOLUTE GRANULOCYTE CT 7.8 /CUMM (1.4-6.5); ABSOLUTE MONOCYTE COUNT 0.5 /CUMM (0.10-0.60); BASOPHIL % 0.9 % (0.0-2.0); GRANULOCYTE % 74.8 % (42.2-75.2); HEMATOCRIT 39.9 % (37-47); MEAN CORPUSCULAR HGB 28.5 PG (27.0-31.0); MEAN CORPUSCULAR HGB CONC 33.5 G/DL (33.0-37.0); MEAN CORPUSCULAR VOLUME 85.1 FL (81.0-99.0); MEAN PLATELET VOLUME 8.2 FL (7.4-10.4); PLATELET COUNT 274 /CUMM (130-400); RBC DISTRIBUTION WIDTH 13.8 % (11.5-14.5); RED BLOOD CELL CT 4.69 /CUMM (4.20-5.40); WHITE BLOOD CELL COUNT 10.5 /CUMM (4.8-10.8)
--- NOTE | 2018-03-14 10:43 | Cons- Cardiology ---
General Information and HPI Consulting Request Date of Consult: 03/14/18 Requested By: Yumi Haskins MD Reason for Consult: Atrial fibrillation, preoperative evaluation Source of Information: patient, old records Exam Limitations: no limitations History of Present Illness: The patient is a 73-year-old woman with a past medical history of recently diagnosed atrial fibrillation. She presented to our hospital with worsening dyspnea as well as a nonproductive cough and right-sided chest pain. She was noted to have a lung mass and likely underlying pneumonia. The patient describes being in a good state of health up until a period of approximately 2 weeks ago. She describes being able to perform greater than 6 metastases of physical activity on a regular basis without symptoms of chest pains, palpitations nor dyspnea. Approximately 2 weeks ago, she had gone to her primary care physician's office for symptoms of increasing dyspnea on exertion, and was noted to be in atrial fibrillation. At that time, she was started on metoprolol for rate control and apixaban as an anticoagulant (she had been incorrectly taking it daily instead of twice daily). The patient presented to our hospital today with symptoms of sharp right sided mid chest discomfort as well as cough and increasing dyspnea. There was no concurrent hemoptysis nor was there a significant change in her chest discomfort with physical activity. She was however limited in physical activity secondary to underlying dyspnea. She states having mild concurrent symptoms of palpitations, described as sensations of her heartbeat in her chest and neck occasionally. There is no concurrent lightheadedness. In the emergency room, the patient underwent a chest CTA which demonstrated a large right suprahilar mass extending into the mediastinum with adenopathy both in the mediastinum and supraclavicular region. Additional lesions were noted in the liver on hepatic cuts, and patchy airspace in the right upper lobe consistent with possible postobstructive pneumonia. From a cardiac standpoint, she is currently asymptomatic with the exception of occasional palpitations felt. Her blood pressure is stable and her heart rates have ranged from 80s-90s. Her last dose of Eliquis was on the evening of March 13. The patient will require biopsy for tissue confirmation of possible underlying cancer. Allergies/Medications Allergies: Coded Allergies: Penicillins (RASH AND HAND PEELING 03/13/18) Home Med List: Apixaban (Eliquis) 5 MG TABLET 1 TAB PO BID atrial fibrillaton (Reported) Metoprolol Succinate 100 MG TAB.ER.24H 1 TAB PO DAILY heart health (Reported) Current Medications: Current Medications Sig/Cate Start time Last Medication Dose Route Stop Time Status Admin Acetaminophen 650 MG Q8P PRN 03/13 2345 AC PO Albuterol Sulfate 3 ML Q4P PRN 03/13 2345 AC INH Albuterol Sulfate 3 ML ONCE ONE 03/13 2000 DC 03/13 INH 03/13 Apixaban 5 MG BID 03/14 0035 CAN PO Apixaban 5 MG BID 03/13 2345 DC 03/14 PO 0103 Azithromycin 500 MG 2300 03/14 2300 AC Sodium Chloride 250 ML IV Azithromycin 500 MG ONCE ONE 03/13 2145 DC 03/13 Sodium Chloride 250 ML IV 03/13 2244 2300 Ceftriaxone Sodium 1,000 MG 2300 03/14 2300 AC IV Ceftriaxone Sodium 0 .STK-MED ONE 03/139 DC .ROUTE Ceftriaxone Sodium 1,000 MG ONCE ONE 03/13 2145 DC 03/13 IV 03/13 214 2300 Ipratropium Wink 2.5 ML ONCE ONE 03/13 2000 DC 03/13 INH 03/13 Metoprolol Succinate 100 MG DAILY 03/14 0900 AC 03/14 PO 0942 Oxycodone HCl 5 MG Q8P PRN 03/14 0015 AC PO Tramadol HCl 50 MG Q8P PRN 03/14 0015 AC PO Review of Systems Review of Systems: The review of systems is negative for chest pains, nor lightheadedness, positive for palpitations, dyspnea and atypical musculoskeletal chest discomfort as above.. The remainder of the 14 point review of systems is noncontributory with the exception of above. Past History Travel History Traveled to [place] past 21 day No Medical History Cardiovascular: AFIB Surgical History Surgical History: non-contributory Family History Relations & Conditions If Any: MOTHER (LUNG CA). Psychosocial History Where Do You Live? Home Services at Home: None Primary Language: Venezuelan Smoking Status: Former Smoker ETOH Use: occasional use Illicit Drug Use: denies illicit drug use Living Will? no Functional Ability ADLs Independent: dressing, eating, toileting, bathing. Ambulation: independent IADLs Independent: shopping, housework, finances, food prep, telephone, medication admin. Unknown: transportation. Employment History Employment: Retired Profession/Employer OFFICE WORK Exam & Diagnostic Data Vital Signs and I&O Vital Signs Date Time Temp Pulse Resp B/P B/P Pulse O2 O2 Flow FiO2 Mean Ox Delivery Rate 03/14 0942 90 122/70 03/14 926 98.0 90 18 122/70 98 Room Air 03/13 2212 97.9 88 18 122/85 96 Room Air 03/13 2019 96 03/13 2006 97.9 108 18 101/73 97 Room Air 03/13 1825 98.0 116 18 121/75 95 Room Air Intake & Output 03/14 1600 03/14 0803/14 0000 03/13 1600 03/13 0803/13 0000 Intake Total Output Total Balance Patient 158 lb Weight Weight Reported by Patient Measurement Method Physical Exam: General: Nontoxic, no apparent distress. HEENT: Sclera and conjunctiva within normal limits, without xanthelasmas. Neck: Carotids 2+ without bruits. Respiratory: Scattered rhonchi, air movement is good, without accessory respiratory muscle use. Heart: Irregularly irregular rate and rhythm, without murmurs, without JVD. Abdomen: Soft, nontender, no masses, normoactive bowel sounds. Extremities: Without clubbing, cyanosis, without edema. Neuro: Nonfocal exam, strength, 5 out of 5 Skin: Within normal limits without lesions. Psych: Mood and affect: Normal Labs/Dano Results: Laboratory Tests 03/14 03/13 0648 1835 Chemistry Sodium (137 - 145 mmol/L) 142 141 Potassium (3.5 - 5.1 mmol/L) 4.5 4.2 Chloride (98 - 107 mmol/L) 103 102 Carbon Dioxide (22 - 30 mmol/L) 25 28 Anion Gap (5 - 16) 14 11 BUN (7 - 17 mg/dL) 14 15 Creatinine (0.5 - 1.0 mg/dL) 0.8 0.9 Estimated GFR (>60 ml/min) > 60 > 60 BUN/Creatinine Ratio (7 - 25 %) 17.5 16.7 Glucose (65 - 99 mg/dL) 115 H Calcium (8.4 - 10.2 mg/dL) 9.5 Total Bilirubin (0.2 - 1.3 mg/dL) 0.4 AST (14 - 36 U/L) 39 H ALT (9 - 52 U/L) 51 Alkaline Phosphatase (<127 U/L) 106 Troponin I (< 0.11 ng/ml) < 0.01 [id number]-Iynxwjwbwdm Pept (<125 pg/mL) 1670 H Total Protein (6.3 - 8.2 g/dL) 7.2 Albumin (3.5 - 5.0 g/dL) 3.8 Globulin (1.9 - 4.2 gm/dL) 3.4 Albumin/Globulin Ratio (1.1 - 2.2 %) 1.1 Hematology CBC w Diff NO MAN DIFF REQ NO MAN DIFF REQ WBC (4.8 - 10.8 /CUMM) 10.5 11.2 H RBC (4.20 - 5.40 /CUMM) 4.69 4.61 Hgb (12.0 - 16.0 G/DL) 13.4 13.1 Hct (37 - 47 %) 39.9 39.5 MCV (81.0 - 99.0 FL) 85.1 85.7 MCH (27.0 - 31.0 PG) 28.5 28.5 MCHC (33.0 - 37.0 G/DL) 33.5 33.3 RDW (11.5 - 14.5 %) 13.8 13.6 Plt Count (130 - 400 /CUMM) 274 307 MPV (7.4 - 10.4 FL) 8.2 8.1 Gran % (42.2 - 75.2 %) 74.8 72.9 Lymphocytes % (20.5 - 51.1 %) 18.6 L 19.0 L Monocytes % (1.7 - 9.3 %) 4.7 6.4 Eosinophils % (0 - 5 %) 1.0 1.2 Basophils % (0.0 - 2.0 %) 0.9 0.5 Absolute Granulocytes (1.4 - 6.5 /CUMM) 7.8 H 8.2 H Absolute Lymphocytes (1.2 - 3.4 /CUMM) 2.0 2.1 Absolute Monocytes (0.10 - 0.60 /CUMM) 0.5 0.7 H Absolute Eosinophils (0.0 - 0.7 /CUMM) 0.1 0.1 Absolute Basophils (0.0 - 0.2 /CUMM) 0.1 0.1 Assessment/Plan Assessment/Plan 73-year-old woman with a past medical history of recently diagnosed atrial fibrillation. She presented to our hospital with worsening dyspnea as well as a nonproductive cough and right-sided chest pain. She was noted to have a lung mass and likely underlying pneumonia. Atrial fibrillation: The patient has recently diagnosed atrial fibrillation in the setting of underlying likely metastatic lung CA and potentially postobstructive pneumonia. Her last dose of Eliquis was on the evening of March 13. The patient has not had further workup including an echocardiogram for her atrial fibrillation, and therefore the same will be obtained. This will be irrespective of the need for her upcoming lung biopsy, and should not delay the procedure if it is unable to be obtained prior to the procedure. Her regimen of Eliquis will be held, and since her overall history is otherwise benign, no need for heparin bridging is present. The patient's overall [id number] score is elevated sufficient enough to warrant resuming anticoagulation following clearance from a surgical/oncological standpoint. Further heart rate control will be titrated as well. Preoperative evaluation: The patient requires an upcoming lung biopsy to evaluate for possible underlying metastatic disease. Given her capacity to perform greater than 6 metastases of physical activity recently without symptoms and given her history, there is no need for further preoperative cardiac testing prior to her procedure. Her overall perioperative risk for ischemic events is not significantly elevated above her baseline. Her overall perioperative risk for congestive heart failure events is not significantly elevated above her baseline. If further heart rate control is necessary preoperatively, the use of IV metoprolol should be considered as first line choice, with subsequent IV diltiazem if needed. Thank you for allowing us to participate in the care of your patient. Please do not hesitate to contact us further with any questions. Sincerely, Sohail Gutierrez MD [facility] Consult Acknowledgment - Thank you for your consult request.
[2018-03-14 13:39] VITALS: BP 120/70
[2018-03-14 14:42] VITALS: BP 100/60
[2018-03-14 21:30] VITALS: BP 104/60
--- NOTE | 2018-03-14 22:18 | CT SCAN REPORT ---
CT HEAD WITHOUT AND WITH IV CONTRAST CLINICAL INFORMATION: Lung cancer and metastases to the liver. COMPARISON: None available. TECHNIQUE: Contiguous axial imaging was performed from the skull base to vertex before and after the administration of 95 mL of Optiray 320 intravenous contrast. FINDINGS: There is no pathologic enhancement intracranially. There is no intracranial hemorrhage, hydrocephalus, extra-axial surface collection, midline shift, or other herniation pattern. Munoz to white matter differentiation is diffusely maintained without evidence of an evolved acute territorial infarct. The basilar cisterns are preserved. No significant soft tissue abnormality. No acute osseous abnormality. The paranasal sinuses and the mastoid air cells are well-aerated. IMPRESSION: - No acute intracranial findings. No enhancing lesions. - Mild to moderate chronic microangiopathy.
[2018-03-15 06:24] VITALS: BP 117/62
--- NOTE | 2018-03-15 07:07 | PN- Oncology ---
Subjective Subjective: Complaining of some mild supraclavicular tenderness, 12 point review of systems otherwise unchanged Objective Vital Signs and I&Os Vital Signs Date Time Temp Pulse Resp B/P B/P Pulse O2 O2 Flow FiO2 Mean Ox Delivery Rate 03/15 624 98.6 92 20 117/62 92 Room Air 03/14 2130 98.5 103 18 104/60 95 07/ 1955 Room Air 03/14 1954 95 Room Air 03/14 1600 Room Air 03/14 1442 97.9 103 18 100/60 94 Room Air 03/14 1339 98.2 91 17 120/70 95 Room Air 03/14 0942 90 122/70 03/14 0926 98.0 90 18 122/70 98 Room Air 03/14 0800 Room Air 03/14 0800 Room Air Intake & Output 03/15 0803/15 0000 03/14 1600 03/14 0803/14 0000 03/13 1600 Intake Total 500 100 120 Output Total Balance 500 100 120 Intake, IV 300 Intake, Oral 200 100 120 Number 0 Bowel Movements Patient 158 lb 158 lb Weight Weight Reported by Patient Reported by Patient Measurement Method Gen.: in NAD ENT: Sclera anicteric Chest: Normal respiratory effort, decreased breath sounds Cor: RRR, no extra sounds Abdomen: Soft, bowel sounds present, no tenderness, no rebound Extremities: Without clubbing, cyanosis, or edema Neurology: Alert and oriented 3, Lymph nodes-small tender right supraclavicular lymph node that I did not appreciate on exam yesterday Current Medications: Current Medications Sig/Cate Start time Last Medication Dose Route Stop Time Status Admin Acetaminophen 650 MG Q8P PRN 03/13 234 AC PO Albuterol Sulfate 3 ML Q4P PRN 03/14 2000 AC INH Albuterol Sulfate 3 ML Q4P PRN 03/13 234 AC INH Azithromycin 500 MG 03/14 AC 03/14 Sodium Chloride 250 ML IV 233 Ceftriaxone Sodium 1,000 MG 03/14 AC 03/14 IV 2336 Metoprolol Succinate 100 MG DAILY 03/14 900 AC 03/14 PO 0942 Oxycodone HCl 5 MG Q8P PRN 03/14 0015 AC PO Tramadol HCl 50 MG Q8P PRN 03/14 0015 AC PO Results Recent Imaging Studies: CT-head-no metastatic disease Assessment/Plan Assessment/Recommendations: Presumed metastatic lung cancer- Patient is scheduled for liver biopsy as an outpatient with coordinated discontinuation Eliquis, Tender lymphadenopathy is typically not sales representative education courses of metastatic disease; some consideration can be given to a supraclavicular lymph node biopsy rather than liver biopsy Await echocardiogram report Follow-up in my office
--- NOTE | 2018-03-15 07:16 | PN- Housestaff ---
Laila RAMIRES,Sylvia 03/15/18 0716: Subjective Follow-up For: Postobstructive pneumonia Subjective: Patient seen and examined. She states that she is feeling good. CT scan of the head was clear and the patient is quite relieved. The patient continues to have some very mild wheezing that comes and goes as per her report, no wheezing at the time of interview. She continues to have right-sided chest pain when she coughs. She is saturating 92% on room air. Review of Systems Constitutional: Reports: no symptoms. Cardiovascular: Reports: chest pain. Respiratory: Reports: short of breath, wheezing. Gastrointestinal: Reports: no symptoms. Genitourinary: Reports: no symptoms. Musculoskeletal: Reports: no symptoms. Skin: Reports: no symptoms. Objective Last 24 Hrs of Vital Signs/I&O Vital Signs Date Time Temp Pulse Resp B/P B/P Pulse O2 O2 Flow FiO2 Mean Ox Delivery Rate 03/15 0851 67 100/60 03/15 0800 98 Room Air 03/15 0624 98.6 92 20 117/62 92 Room Air 03/14 2130 98.5 103 18 104/60 95 03/14 1955 Room Air 03/14 1954 95 Room Air Intake & Output 03/15 1600 03/15 0800 03/15 0000 Intake Total 500 100 Output Total Balance 500 100 Intake, IV 300 Intake, Oral 200 100 Physical Exam General Appearance: Alert, Oriented X3, Cooperative, No Acute Distress Skin: No Rashes, No Breakdown, No Significant Lesion Skin Temp/Moisture Exam: Warm/Dry Sepsis Skin Exam (color): Normal for Ethnicity Neck: Supple, No JVD Cardiovascular: Regular Rate, Normal S1, Normal S2, No Murmurs Lungs: scattered wheezing Abdomen: Normal Bowel Sounds, Soft, No Tenderness Neurological: Normal Speech Extremities: No Clubbing, No Cyanosis, No Edema, Normal Pulses Vascular: Normal Pulses, Pulses Symmetrical Current Medications: Current Medications Sig/Cate Start time Last Medication Dose Route Stop Time Status Admin Acetaminophen 650 MG Q8P PRN 03/13 2345 DCD PO Albuterol Sulfate 3 ML Q4P PRN 03/14 2000 DCD INH Albuterol Sulfate 3 ML Q4P PRN 03/13 2345 DCD INH Azithromycin 500 MG 03/14 2300 DCD 03/14 Sodium Chloride 250 ML IV 2336 Ceftriaxone Sodium 1,000 MG 03/14 2300 DCD 03/14 IV 2336 Metoprolol Succinate 100 MG DAILY 03/14 0900 DCD 03/15 PO 0851 Oxycodone HCl 5 MG Q8P PRN 03/14 0015 DCD PO Tramadol HCl 50 MG Q8P PRN 03/14 0015 DCD PO Last 24 Hrs of Lab/Dano Results Last 24 Hrs of Labs/Mics: Laboratory Tests 03/15/18 0643: Anion Gap 13, Estimated GFR > 60, BUN/Creatinine Ratio 18.8, PT 11.6, INR 1.06, APTT 31, CBC w Diff NO MAN DIFF REQ, RBC 4.61, MCV 85.8, MCH 28.8, MCHC 33.6, RDW 13.7, MPV 8.3, Gran % 71.7, Lymphocytes % 19.9 L, Monocytes % 6.7, Eosinophils % 1.3, Basophils % 0.4, Absolute Granulocytes 7.5 H, Absolute Lymphocytes 2.1, Absolute Monocytes 0.7 H, Absolute Eosinophils 0.1, Absolute Basophils 0 Assessment/Plan Assessment: Ms Hall is a 73 year old woman w/ a PMHx of paroxysmal atrial fibrillation came to the hospital with a chief concern of exertional dyspnea 1 week, likely secondary to worsening malignancy and post obstructive pneumonia. At the time of admission-vitals temperature 98.0, pulse rate 116, respiration 18 , blood pressure 121/75, 95% on room air. Pertinent lab findings: WBC 11.2, hemoglobin 13.1, MCV 85.7, platelet count 307. Sodium 141, potassium 4.2. Bicarbonate 28, anion gap 11, BUN 15, creatinine 0.9. ProBNP 1670. AST 39, ALT 51, alkaline phosphatase 106. Albumin 3.8. Chest CTA revealed: Large right suprahilar mass lesion extending into the adjacent mediastinum with likely confluent adenopathy in the right hilar, precarinal, andparatracheal regions. There is additional adenopathy elsewhere in the mediastinum and right supraclavicular region concerning for metastatic disease. Additionally in the visualized upper abdomen there are innumerable low-attenuation lesions seen throughout the liver concerning for diffusehepatic metastases. More patchy airspace disease is seen in the lateralaspect of the right upper lobe possibly due to infectious or inflammatorypostobstructive changes. Primary small peripheral lung lesion in this location would be possible but less likely based on the size and distributionof the adenopathy/metastases Problem list: #1 Lung mass w/ extrathoracic dissemination #2 Likely post-obstruction pneumonia - sepsis with evidence of SIRS (TACHYCARDIA AND WHITE COUNT) with a source #3 Paroxysmal atrial fibrillation Etiology in her case is likely maligancy, likely adenocarcinoma. Given her rapidity of symptoms that worsened in the last few weeks, and history of smoking +Fam Hx multiple cancers, small cell cancer should be kept in mind and diagnosis expediated by biopsy and PET. However, patient was given her eliquis dose early Tuesday morning so biopsy will unfortunately have to wait. Plan: -Patient admitted to Gen. medical floors. -Switch antibiotic to Vancin 200bid and azithromycin 500 daily as patient is unable to tolerated Augmentin secondary to severe penicillin allergy for 5 days total abx treatment. -Patient will leave with albuterol inhaler 2 puffs every 6 as needed. -We have consulted with oncology who stressed the importance of tissue confirmation. There are no palpable lymph nodes so we will instead go for liver biopsy which we have scheduled tentatively for Tuesday, are relying on patient's PCP Dr. Nicki Larson for prior authorization. Her office will contact the patient at [phone] once a have confirmed appointment for Tuesday. They will also need to confirm the time the patient must be n.p.o. and interventional radiologist after the procedure will confirm when to restart her Eliquis. -Patient will also get outpatient bone scan/PET for metastases -CT head done showed no acute findings and no enhancing lesions suspicious for metastases. -We have also ordered echocardiogram patient has new onset atrial fibrillation. CAT scan does not suggest pericardial involvement. We will follow-up on that. -We have cardiology seeing the patient for guidance on her anticoagulation. We will hold Eliquis and since her past medical history is negative for vascular disease otherwise, there is no need for heparin bridging. However her overall [id number] score is elevated enough so that we will recommend resumption anticoagulation after biopsy. -Also, according to cardiology, and given her capacity to perform greater than 6 metastases of physical activity, there is no further need for preoperative cardiac testing prior to the liver biopsy. -Supplemental oxygen, prn -Inhaled bronchodilators as needed -Blood cultures drawn in ther ER. No lower respiratory culture was able to be obtained, negative strep and legionella antigens. -Trend lactate, if she is febrile 1. DVT Ppx- ALPS 2. GI ppx-Protonix 3. Full code 4. Pain pathway ordered. Problem List: 1. Metastasis 2. Lung cancer 3. Pneumonia Pain Ratin Pain Location: na Pain Goal: Remain pain free Pain Plan: na Tomorrow's Labs & Rationales: Yumi Mares MD 03/15/18 0950: Attending MD Review Statement Attending Statement Attending MD Statement: examined this patient, discuss w/resident/PA/STAGECRAFT PROFESSOR, agreed w/resident/PA/STAGECRAFT PROFESSOR, discussed with family, reviewed EMR data (avail), discussed with nursing, discussed with case mgmt, reviewed images Attending Assessment/Plan: Overall patient is doing okay. She is eager to leave as soon as possible. We spoke at length and she understands that this is likely metastatic lung CA and given the nature of metastases likely poor prognosis. We are setting her up for a ultrasound-guided liver biopsy on Tuesday. She stopped her Eliquis her last dose was Tuesday night so she'll have this biopsy on Tuesday and follow up with Dr. Ward next week. IR will tell her when to restart her Eliquis after the biopsy. We'll give her a total of 5 days of by mouth Augmentin for a postobstructive pneumonia as evidenced on the CT. She understands the need for close outpt f/u
--- NOTE | 2018-03-15 07:48 | Patient Discharge Instructions ---
Discharge Instructions General Discharge Information You were seen/treated for: pneumonia lung/liver masses Special Instructions: 1. please follow up with your PCP in one week 2. please follow up with oncology in one week 3. please restart eliquis after liver biopsy as directed 4. We will call you today 03/15 with information regarding timing of your liver biopsy tenatively set for Saturday 03/17. Diet Continue normal diet: Yes Activity Full Activity/No Limits: Yes Acute Coronary Syndrome Inclusion Criteria At DC or during hospital stay patient has or had the following: ACS DIAGNOSIS No Discharge Core Measures Meds if any: Prescribed or Continued at Discharge Meds if any: NOT Prescribed or Continued at Discharge Congestive Heart Failure Inclusion Criteria At DC or during hospital stay patient has or had the following: CHF DIAGNOSIS No Discharge Core Measures Meds if any: Prescribed or Continued at Discharge Meds if any: NOT Prescribed or Continued at Discharge Cerebrovascular accident Inclusion Criteria At DC or during hospital stay patient has or had the following: CVA/TIA Diagnosis No Discharge Core Measures Meds if any: Prescribed or Continued at Discharge Meds if any: NOT Prescribed or Continued at Discharge Venous thromboembolism Inclusion Criteria VTE Diagnosis No VTE Type NONE VTE Confirmed by (Test) NONE Discharge Core Measures - Per Current guidelines, there needs to be overlap - treatment for the first 5 days of Warfarin therapy. - If discharged on Warfarin prior to 5 days of - overlap therapy, the patient will need to be - assessed for post discharge needs including - *Post discharge parental anticoagulation - *Warfarin and/or parental anticoagulation education - *Follow up date to check INR post discharge At least 5 days overlap therapy as Inpatient No Meds if any: Prescribed or Continued at Discharge Note: Overlap Therapy is Warfarin and Anticoagulant Meds if any: NOT Prescribed or Continued at Discharge
[2018-03-15 08:38] LABS: ABSOLUTE BASOPHIL COUNT 0 /CUMM (0.0-0.2); ABSOLUTE EOSINOPHIL COUNT 0.1 /CUMM (0.0-0.7); ABSOLUTE GRANULOCYTE CT 7.5 /CUMM (1.4-6.5); ABSOLUTE LYMPH COUNT 2.1 /CUMM (1.2-3.4); ABSOLUTE MONOCYTE COUNT 0.7 /CUMM (0.10-0.60); BASOPHIL % 0.4 % (0.0-2.0); EOSINOPHIL % 1.3 % (0-5); GRANULOCYTE % 71.7 % (42.2-75.2); HEMATOCRIT 39.6 % (37-47); MEAN CORPUSCULAR HGB 28.8 PG (27.0-31.0); MEAN CORPUSCULAR HGB CONC 33.6 G/DL (33.0-37.0); MEAN CORPUSCULAR VOLUME 85.8 FL (81.0-99.0); MEAN PLATELET VOLUME 8.3 FL (7.4-10.4); PLATELET COUNT 299 /CUMM (130-400); RBC DISTRIBUTION WIDTH 13.7 % (11.5-14.5); RED BLOOD CELL CT 4.61 /CUMM (4.20-5.40); WHITE BLOOD CELL COUNT 10.5 /CUMM (4.8-10.8)
[2018-03-15 08:51] VITALS: BP 100/60
[2018-03-15 09:24] LABS: PT 11.6 SEC (9.4-12.5); PTT 31 SEC (25-37)
[2018-03-15] MEDS ORDERED: AUGMENTIN 875-1 EACH PO (09:45)
[2018-03-15] MEDS ORDERED: ALBUTEROL2.5 MG/3 M INH (09:48)
[2018-03-15] MEDS ORDERED: ELIQUIS5 M1 PO ×2 (09:48→09:49)
--- NOTE | 2018-03-15 10:34 | ECHOCARDIOGRAM REPORT ---
JOSELIN BROWN Age: 73 : 1945 Gender: F Exam Date: 03/14/2018 17:00 Exam Location: [facility] Ht (in): 62 Wt (lb): 158 BSA: 1.79 BP: 120 / 70 Ordering Physician: Sylvia Ulloa MD Referring Physician: Sohail Gutierrez M.D. Technologist: Meenu Muhammad [facility] Room Number: 226 Indications: AFIB/FLUTTER Rhythm: Technical Quality: Good FINDINGS Left Ventricle Normal LV chamber size, wall thickness and systolic function. The estimated LVEF is 60%. There are no focal wall motion abnormalities. Right Ventricle Grossly normal-appearing right ventricle structure and function Right Atrium Normal right atrium Left Atrium Mildly dilated left atrium Mitral Valve Normal-appearing mitral valvular leaflets with adequate leaflet excursion. There is mild mitral regurgitation. Aortic Valve Mildly sclerotic, trileaflet aortic valve with normal leaflet opening. Tricuspid Valve Normal-appearing tricuspid valvular leaflet structure and function. There is mild tricuspid regurgitation. Pulmonic Valve Normal-appearing pulmonic valve Pericardium Grossly normal-appearing pericardium with an epicardial fat pad seen Great Vessels Normal great vessels CONCLUSIONS Normal LV chamber size, wall thickness and systolic function. The estimated LVEF is 60%. There are no focal wall motion abnormalities. There is mild mitral regurgitation. There is mild tricuspid regurgitation. Sohail Gutierrez M.D. (Electronically Signed) Final Date: 15 March 2018 10:31 MEASUREMENTS (Male / Female) Normal Values 2D ECHO LV Diastolic Diameter PLAX 4.6 cm 4.2 - 5.9 / 3.9 - 5.3 cm LV Systolic Diameter PLAX 3.1 cm 2.1 - 4.0 cm LV Fractional Shortening PLAX 32.6 % 25 - 46 % LV Ejection Fraction 2D Teich 61.0 % IVS Diastolic Thickness 0.9 cm LVPW Diastolic Thickness 0.9 cm LV Relative Wall Thickness 0.4 RV Internal Dim ED PLAX 2.4 cm 1.9 - 3.8 cm LVOT Diameter 2.0 cm Aortic Root Diameter 3.0 cm LA Systolic Diameter LX 3.4 cm 3.0 - 4.0 / 2.7 - 3.8 cm LA Volume 25.0 cm 18 - 58 / 22 - 52 cm Ascending Aorta Diameter 2.6 cm DOPPLER AV Peak Velocity 133.0 cm/s AV Peak Gradient 7.1 mmHg AV Mean Velocity 97.8 cm/s AV Mean Gradient 4.0 mmHg AV Velocity Time Integral 24.6 cm LVOT Peak Velocity 108.0 cm/s LVOT Peak Gradient 4.7 mmHg LVOT Mean Velocity 77.9 cm/s LVOT Mean Gradient 3.0 mmHg LVOT Velocity Time Integral 20.4 cm LVOT Stroke Volume 64.1 cm AV Area Cont Eq vti 2.6 cm AV Area Cont Eq pk 2.6 cm MV Peak Velocity 112.0 cm/s MV Peak Gradient 5.0 mmHg MV Mean Velocity 52.3 cm/s MV Mean Gradient 1.0 mmHg Mitral E Point Velocity 119.0 cm/s MV PHT Velocity 116.0 cm/s MV Deceleration [place] 493.0 cm/s MV Pressure Half Time 70.6 ms MV Area PHT 3.1 cm MV Deceleration Time 155.0 ms PV Peak Velocity 78.5 cm/s PV Peak Gradient 2.5 mmHg PV Mean Velocity 49.6 cm/s PV Mean Gradient 1.0 mmHg PV Velocity Time Integral 11.4 cm LV E' Lateral Velocity 15.2 cm/s Mitral E to LV E' Lateral Ratio 7.8 LV E' Septal Velocity 9.9 cm/s Mitral E to LV E' Septal Ratio 12.0
[2018-03-15] MEDS ORDERED: AZITHROMYCIN500 M3 PO (10:52)
[2018-03-15] MEDS ORDERED: CEFPODOXIME PR200 M2 PO (10:52)
--- NOTE | 2018-03-16 07:20 | Discharge Summary ---
Visit Information Visit Dates Admission Date: 03/13/18 Discharge Date: 03/15/18 Hospital Course Course Attending Physician: Divine RAMIRES,Yumi Giraldo Primary Care Physician: Neo RAMIRES,Nicki Garcia Consulting Request: Consulting Specialty: Hematology/Oncology Hospital Course: Ms Hall is a 73 year old woman w/ a PMHx of paroxysmal atrial fibrillation came to the hospital with a chief concern of exertional dyspnea 1 week. She was known to be in her usual state of health until a few weeks ago, when she noticed that she had pain in her right side of the chest. Approximately one week ago, she had exertional shortness of breath, and nasal congestion and was evaluated by her primary care physician and subsequently by her principal secretary. She did not have any chest pain, palpitations, lightheadedness, loss of consciousness, pedal edema. Approximately 24 hours ago, she noticed that she had worsening dyspnea upon ambulation, associated with nonproductive cough and right-sided chest pain at the time of paroxysms of cough. She was seen at walk-in clinic and was recommended to be evaluated in the ER. No fever, but had occasional chills. She was diagnosed with atrial fibrillation several months back and was started on apixaban and metoprolol. Past smoker, [id number] smoking history, quit 20 years ago. Family history of lung cancer in mother. 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 At the time of admission-vitals temperature 98.0, pulse rate 116, respiration 18 , blood pressure 121/75, 95% on room air. Pertinent lab findings: WBC 11.2, hemoglobin 13.1, MCV 85.7, platelet count 307. Sodium 141, potassium 4.2. Bicarbonate 28, anion gap 11, BUN 15, creatinine 0.9. ProBNP 1670. AST 39, ALT 51, alkaline phosphatase 106. Albumin 3.8. Chest CTA revealed: Large right suprahilar mass lesion extending into the adjacent mediastinum with likely confluent adenopathy in the right hilar, precarinal, andparatracheal regions. There is additional adenopathy elsewhere in the mediastinum and right supraclavicular region concerning for metastatic disease. Additionally in the visualized upper abdomen there are innumerable low-attenuation lesions seen throughout the liver concerning for diffusehepatic metastases. More patchy airspace disease is seen in the lateralaspect of the right upper lobe possibly due to infectious or inflammatorypostobstructive changes. Primary small peripheral lung lesion in this location would be possible but less likely based on the size and distributionof the adenopathy/metastases. Problem list: #1 Lung mass w/ extrathoracic dissemination #2 Likely post-obstruction pneumonia - sepsis with evidence of SIRS (TACHYCARDIA AND WHITE COUNT) with a source #3 Paroxysmal atrial fibrillation Etiology in her case is likely maligancy, likely adenocarcinoma. Given her rapidity of symptoms that worsened in the last few weeks, and history of smoking and family history of multiple cancers, small cell cancer should be kept in mind and diagnosis expediated by biopsy and PET. However, patient was given her eliquis dose early Tuesday morning so biopsy will unfortunately have to wait. Hospital Course: Patient admitted to general medical floors. We began ceftriaxone and azithromycin. We have consulted with oncology who stressed the importance of tissue confirmation for treatement. There are no palpable lymph nodes on first examination so we planned to go for liver biopsy which we have scheduled tentatively for Tuesday, outpatient with interventional radiology. Patient will also get outpatient bone scan/PET for metastases. While inpatient, however, she had CT head with and without IV contrast as she was recently on anticoagulants ( last given in the ED) and could have had hemorrhagic transformation of brain lesions and this could have changed the management of her A. fib which is currently Eliquis. CT head was negative for any acute pathology or lesion. On second exam, Dr. Hartmann found a supraclavicular palpable lymph node and suggested lymph node or liver biopsy, but after discussion we agreed on ultrasound guided liver biopsy, which we had scheduled tentatively for Tuesday, are relying on patient's PCP Dr. Nicki Larson for prior authorization. Her office will contact the patient at [phone] once they have confirmed appointment for Tuesday. They will also need to confirm the time the patient must be n.p.o. and interventional radiologist after the procedure will confirm when to restart her Eliquis. Blood cultures were drawn in the ER and were ultimately negative. No lower respiratory culture was able to be obtained, negative strep and legionella antigens. We originally discharged patient on augmentin but switched antibiotic to Vantin 200 bid and azithromycin 500 daily as patient is unable to tolerate Augmentin secondary to severe penicillin allergy for 5 days total abx treatment. Patient will also leave with albuterol inhaler 2 puffs every 6 as needed. We had cardiology seeing the patient for guidance on her anticoagulation. We will hold Eliquis and since her past medical history is negative for vascular disease otherwise, there is no need for heparin bridging. However her overall [id number] score is elevated enough so that we will recommend resumption anticoagulation after biopsy. Also, according to cardiology, and given her capacity to perform greater than 6 mets of physical activity, there is no further need for preoperative cardiac testing prior to the liver biopsy. We also ordered echocardiogram patient has new onset atrial fibrillation. CAT scan does not suggest pericardial involvement. Allergies: Coded Allergies: Penicillins (RASH AND HAND PEELING 03/13/18) Disposition Summary Disposition Principal Diagnosis: lung mass with extrathoracic dissemination Additional Diagnosis: Likely post-obstruction pneumonia - sepsis with evidence of SIRS (TACHYCARDIA AND WHITE COUNT) with a source Paroxysmal atrial fibrillation Discharge Disposition: home or self care Discharge Instructions General Discharge Information Code Status: Full Code Patient's Diet: regular Patient's Activity: as tolerated Follow-Up Instructions/Appts: 1. please follow up with your PCP in one week 2. please follow up with oncology in one week 3. please restart eliquis after liver biopsy as directed 4. Your PCP will call you on 03/16 with information regarding timing of your liver biopsy tenatively set for Saturday 03/17. Medications at Discharge Discharge Medications: Continue taking these medications: Metoprolol Succinate (Metoprolol Succinate) 100 MG TAB.ER.24H 1 Tablet ORAL DAILY Qty = 90 Comments: Last Taken: 03/15/18 Time: 8:51 AM Start taking the following new medications: Albuterol Sulfate (Albuterol Sulfate) 2.5 MG/3 ML (0.083 %) VIAL.NEB 2 PUFF Inhale through mouth EVERY SIX HOURS NEEDED as needed for SHORTNESS OF BREATH Qty = 1 Refills = 2 Cefpodoxime Proxetil (Cefpodoxime Proxetil) 200 MG TABLET 1 Tablet ORAL TWICE DAILY Qty = 6 No Refills Azithromycin (Azithromycin) 500 MG TABLET 1 Tablet ORAL DAILY Qty = 3 No Refills The following medications have been changed: Old: Apixaban (Eliquis) 5 MG TABLET 1 Tablet ORAL TWICE DAILY Qty = 60 New: Apixaban (Eliquis) 5 MG TABLET 1 Tablet ORAL TWICE DAILY Qty = 60 Instructions: BEGIN TAKING AFTER BIOPSY DIRECTED Comments: PLEASE BEGIN TAKING WHEN DIRECTED POST-BIOPSY Copies To: Neo RAMIRES,Nicki Garcia; Mary Kate RAMIRES,Jean Giraldo
== END 2018-03-15 10:55 | DRG 195 ==
LOC: ERH 17:45 → ERHI 21:37 → 2NA 21:37 → ERHI 03-14 07:52 → ENRESERV 03-14 12:11 → ENTRNSPT 03-14 12:41 → EDTRNSPT 03-14 13:12 → EDTRNSPTSTS 03-14 13:12 → 2NA 03-14 13:20 → CMPTRNSPT 03-14 13:44 → ENPENDDIS 03-15 10:11 → 2NA 03-15 10:55
PROVIDERS: Internal Medicine Endocrinology, Diabetes & Metabolism; Physician Assistant; Student in an Organized Health Care Education/Training Program
DX: J18.9 Pneumonia, unspecified organism (principal); I48.0 Paroxysmal atrial fibrillation; R91.8 Other nonspecific abnormal finding of lung field; R59.1 Generalized enlarged lymph nodes; Z88.0 Allergy status to penicillin; Z80.1 Family history of malignant neoplasm of trachea, bronchus and lung; Z87.891 Personal history of nicotine dependence; Z79.01 Long term (current) use of anticoagulants
CPT/HCPCS: 2NAP; ERO; 36592; 82436; 87040; 87070; 87449; 87450; 93005; 93010; 93306; J0456; J0696; J7040; J7508

== ENCOUNTER → 2018-04-10 | Day surgery (SDC) | payer OTHER ==
[~2018-04-10] VITALS: Ht 157.5 cm; Wt 68.9 kg
[~2018-04-10] MED LIST: ALBUTEROL2.5 MG/3 M INH; AUGMENTIN 875-1 EACH PO; AZITHROMYCIN500 M3 PO; CEFPODOXIME PR200 M2 PO; CLARITIN10 M1 PO; ELIQUIS5 M1 PO; FERROUS SULFAT325 M3 PO; METOPROLOL SUC100 M2 PO; MIRALAX17 G1 PO
--- NOTE | 2018-04-10 10:19 | Operative Report ---
Operative/Inv Procedure Report Surgery Date: 04/10/18 Name of Procedure: Right axillary vein Port-A-Cath placement with ultrasound and fluoroscopic guidance Pre-Operative Diagnosis: Small cell lung cancer Post-Operative Diagnosis: Same Estimated Blood Loss: scant Surgeon/Stand Up Forklift Operator: Bry RAMIRES,Dale Lopez Anesthesia: local monitored anesthesi Implants: [employer] Operative/Procedure Note Note: Patient brought to the operating room and laid supine. Her arm tucked and a roll placed behind the shoulder. Her right chest and neck were then prepped and draped. She was sedated. Using ultrasound imaging the right axillary vein was visualized and percutaneously accessed after local anesthesia placed. A wire was placed on the right atrium. Confirmation with fluoroscopic imaging was performed. The right chest was then infiltrated further with local anesthesia an incision made over the wire. An inferiorly based pocket was created with blunt and cautery dissection. The port was placed into the pocket and the catheter measured under fluoroscopic imaging. It was trimmed to 22 cm. Using fluoroscopy the dilator was placed down into the SVC. The wire was removed and passed off the field. The catheter was placed through the peel-away sheath. Sheath was then removed. Final fluoroscopic images show the catheter in the atrial SVC junction. The catheter was aspirated and flushed with concentrated heparin. The port was anchored to the deep subcutaneous tissues tissues with 0 Vicryl suture. The skin was closed with 3-0 and 4-0 Vicryl. Steri-Strips and sterile dressing applied. Sponge and needle counts are correct. CC: Neo RAMIRES,Nicki Garcia; Mary Kate RAMIRES,Jean Giraldo
--- NOTE | 2018-04-10 11:25 | RADIOLOGY REPORT ---
EXAMINATION: XR PORTABLE CHEST CLINICAL INFORMATION: Placement of Port-A-Cath COMPARISON: Chest CT from 03/13/2018 TECHNIQUE: Portable frontal view of the chest was obtained. FINDINGS: A mass in the right hilar and paratracheal region is not appreciably changed compared to the chest CT of 03/13/2018. Mild linear and nodular opacity is seen in the right lung apex. No pneumothorax or pleural effusion. Interval placement of a right chest wall medication port with subclavian catheter. The catheter tip is in the distal superior vena cava. Cardiac silhouette is normal in size. The visualized bones are intact. IMPRESSION: - The tip of the central catheter is in the distal superior vena cava. No pneumothorax. - The mass of the right hilum and paratracheal area is not appreciably changed compared to 03/13/2018.
--- NOTE | 2018-04-10 14:37 | RADIOLOGY REPORT ---
EXAMINATION: CR PORT-A-CATH INSERTION OR CLINICAL INFORMATION: Right Port-A-Cath COMPARISON: None TECHNIQUE: C-arm fluoroscopic imaging equipment was utilized within the operating room. Number of saved images: 3. Fluoroscopy time: 54.2 seconds. Dose: 653.38 mrad. FINDINGS/IMPRESSION: Please refer to the operative report. C-arm fluoroscopic imaging of the chest was needed at the time of Port-A-Cath insertion.
== END ==
LOC: STS 02:23
DX: C34.90 Malignant neoplasm of unspecified part of unspecified bronchus or lung (principal); Z87.891 Personal history of nicotine dependence; I48.91 Unspecified atrial fibrillation; Z79.01 Long term (current) use of anticoagulants
CPT/HCPCS: 71045; 76000; C1788; J1644; J1885; J2250